=== PATIENT | male | born 1985 | race African-American/Black ===

== ENCOUNTER 2016-09-17 10:23 | Emergency (ER) | payer SELFPAY ==
[2016-09-17] MEDS ORDERED: HYDROcodone/Acetaminophen 10/325 mg Tablet ONE (10:40)
[2016-09-17] MEDS ORDERED: AMOXicillin 250 MG CAP ONE (10:41)
[2016-09-17] MEDS ORDERED: Ibuprofen 800 MG TAB ONE (10:41)
--- NOTE | 2016-09-17 10:59 | ERRECORD ---
[facility] EMERGENCY RECORD PAST MEDICAL HISTORY (10:28 SFER) MEDICAL HISTORY: Flu vaccine not up to date, Tetanus not up to date, Pneumococcal vaccine not up to date, Past medical history includes history of diabetes, Past medical history includes history of hypertension. MALE SURGICAL HISTORY: Patient has no surgical history. PSYCHIATRIC HISTORY: no history of suicidal ideations, No history of suicide attempts, No history of hallucinations, No history of homicidal ideations, No history of violence towards others, Psychiatric history includes, anxiety, depression. SOCIAL HISTORY: Patient denies alcohol use, Patient denies drug use, Patient has no smoking history. FAMILY HISTORY: Family istory is not significant. KNOWN ALLERGIES No Known Drug Allergies CURRENT MEDICATIONS (10:29 SFER) None VITAL SIGNS (10:28 SFER) VITAL SIGNS: BP: 147/107, Pulse: 103, Resp: 20 (Non-Labored), Temp: 97.9 (Oral), Pain: 10, O2 sat: 98 on Room Air, Time: 09/17/2016 10:28. MEDICATION ADMINISTRATION SUMMARY Drug Name: Orlando, Dose Ordered: 10 mg, Route: Oral, Status: Given, Time: 10:44 09/17/2016, Drug Name: Amoxil, Dose Ordered: 1000 mg, Route: Oral, Status: Given, Time: 10:44 09/17/2016, Drug Name: Motrin, Dose Ordered: 800 mg, Route: Oral, Status: Given, Time: 10:43 09/17/2016, Detailed record available in Medication Service section. PROBLEM LIST No recorded problems DIAGNOSIS (10:40 JPIP) FINAL: PRIMARY: Toothache, ADDITIONAL: chronic low back pain. PRESCRIPTION (10:39 JPIP) Amoxil: CAPSULE (HARD, SOFT, ETC.) : 500 mg : ORAL : Quantity: 1 Unit: mg Route: ORAL Schedule: 3 times a day (after meals) Dispense: 30 May substitute. Refills: No Refills . NOTES: No refills. diclofenac oral: TABLET, DELAYED RELEASE (ENTERIC COATED) : 75 &a-1R&a+25V*p+0X*c2745Q*c202B*c15G*c2P*p-0X&a-25V&a+1R Name: Hans Dao : 1985 M31 MedRec: [id number] AcctNum: [id number] Prepared: SatSep 17, 2016 10:56 by Interface Page 1 of 2 pMD [facility] EMERGENCY RECORD mg : ORAL : Quantity: 1 Unit: tab(s) Route: ORAL Schedule: 2 times a day (with meals) Dispense: 30 May substitute. Refills: No Refills . NOTES: as needed for pain No refills. Ultram: TABLET : 50 mg : ORAL : Quantity: 1-2 Unit: tab(s) Route: ORAL Schedule: every 8 hours PRN Dispense: 30 May substitute. Refills: No Refills . NOTES: for pain No refills. DISPOSITION PATIENT: Disposition Type: Discharge, Disposition: *Discharge Home, Condition: Good. (10:40 RAIN) Patient left the department. (10:52 [facility]) Arthur: AHOO=BRANDON Ni, December JPIP=DO Vega Joseph SFER=STAS Ponce, [place] &a-1R&a+25V*p+0X*v5608B*c202B*c15G*c2P*p-0X&a-25V&a+1R Name: Hans Dao : 1985 2 MedRec: [id number] AcctNum: [id number] Prepared: SatSep 17, 2016 10:56 by Interface Page 2 of 2 pMD MTDD
--- NOTE | 2016-09-17 11:03 | PICIS ---
[facility] EMERGENCY RECORD TRIAGE (SatSep 17, 2016 10:27 SFER) TRIAGE NOTES: patient presents with dental pain that started approximately 3 weeks ago. hurts daily. also complains of lower back pain. (SatSep 17, 2016 10:27 SFER) PATIENT: NAME: Hans Dao, AGE: 31, GENDER: male, : Sun 1985, TIME OF GREET: SatSep 17, 2016 10:23, PREFERRED LANGUAGE: Mozambican, ETHNICITY: Not or , ECODE BILLING MAP: [facility], SSN: [id number], KG WEIGHT: 117.93, , , PERSON ID: [id number], PAYMENT: [employer] Self Pay, PCP: None. (SatSep 17, 2016 10:27 SFER) Zip Code: [id number], PHONE: . (10:43) COMPLAINT: Dental Pain. (SatSep 17, 2016 10:27 SFER) ADMISSION: URGENCY: 5 Fast Track, ADMISSION SOURCE: Home, TRANSPORT: CAR, BED: ER -03. (SatSep 17, 2016 10:27 SFER) TRIAGE SCREENING: Patient denies suicidal ideation, Patient denies presence of domestic violence. (10:28 SFER) TREATMENTS IN PROGRESS: Treatments given Prehospital: none. (10:28 SFER) PROVIDERS: TRIAGE NURSE: Cheryl Ponce RN. (SatSep 17, 2016 10:27 SFER) VITAL SIGNS: BP 147/107, Pulse 103, Resp 20, (Non-Labored), Temp 97.9, (Oral), Pain 10, O2 Sat 98, on Room Air, Time 09/17/2016 10:28. (10:28 SFER) KNOWN ALLERGIES No Known Drug Allergies CURRENT MEDICATIONS (10:29 SFER) None VITAL SIGNS (10:28 SFER) VITAL SIGNS: BP: 147/107, Pulse: 103, Resp: 20 (Non-Labored), Temp: 97.9 (Oral), Pain: 10, O2 sat: 98 on Room Air, Time: 09/17/2016 10:28. NURSING ASSESSMENT: DENTAL (10:40 SFER) CONSTITUTIONAL: Patient arrives ambulatory, Gait steady, History obtained from patient, Patient appears comfortable, Patient cooperative, Patient alert, Oriented to person, place and time, Skin warm, Skin dry, Skin normal in color, Mucous membranes pink, Mucous membranes moist, Patient complains of dental pain, patient presents with dental pain to the left jaw. swelling and pain with palpation. PAIN: aching pain, cramping pain, to left lower back tooth (teeth), on a scale 0-10 patient rates pain as 10, Pain exacerbated by, palpation, Nothing has been tried to alleviate the pain. DENTAL: Dental assessment findings include mouth normal, Teeth normal, no associated malocclusion of jaw, no associated bleeding, &a-1R&a+25V*p+0X*j5410L*c202B*c15G*c2P*p-0X&a-25V&a+1R Name: Hans Dao : 1985 M31 MedRec: [id number] AcctNum: [id number] Prepared: SatSep 17, 2016 11:00 by Interface Page 1 of 4 pMD [facility] EMERGENCY RECORD Associated with, swelling to the left side of the face, no swelling to the eyes, no swelling to the neck, swelling to the left jaw. SAFETY: Side rails up, Cart/Stretcher in lowest position, Family at bedside, Call light within reach, Hospital ID band on. NURSING PROCEDURE: DISCHARGE NOTE (10:47 AHOO) DISCHARGE: Patient discharged to home, ambulating without assistance, transported via taxi, accompanied by //partner, Summary of Care printed/ provided, Transition record given to patient, Discharge instructions given to patient, Prescriptions given and instructions on side effects given, Above person(s) verbalized understanding of discharge instructions and follow-up care, Notes: PER MD REBOLLEDO TO [facility] PT WITH CURRENT VS. MEDICATION ADMINISTRATION SUMMARY Drug Name: Isola, Dose Ordered: 10 mg, Route: Oral, Status: Given, Time: 10:09/17/2016, Drug Name: Amoxil, Dose Ordered: 1000 mg, Route: Oral, Status: Given, Time: :09/17/2016, Drug Name: Motrin, Dose Ordered: 800 mg, Route: Oral, Status: Given, Time: 10:43 09/17/2016, Detailed record available in Medication Service section. MEDICATION SERVICE Amoxil: Order: Amoxil (amoxicillin trihydrate) - Dose: 1000 mg : Oral Schedule: Now Ordered by: Caleb Vega DO Entered by: Caleb Vega DO SatSep 17, 2016 10:38 , Acknowledged by: Latricia Ni LVN SatSep 17, 2016 10:39 Documented as given by: Latricia iN LVN SatSep 17, 2016 10:44 Patient, Medication, Dose, Route and Time verified prior to administration. Amount given: 1000MG, Correct patient, time, route, dose and medication confirmed prior to administration, Patient advised of actions and side-effects prior to administration, Allergies confirmed and medications reviewed prior to administration, Patient in position of comfort, Side rails up, Cart in lowest position, Family at bedside. Motrin: Order: Motrin (ibuprofen) - Dose: 800 mg : Oral Schedule: Now Ordered by: Caleb Vega DO Entered by: Caleb Vega DO SatSep 17, 2016 10:38 , Acknowledged by: Latricia Ni LVN SatSep 17, 2016 10:39 Documented as given by: Latricia Ni LVN SatSep 17, 2016 10:43 Patient, Medication, Dose, Route and Time verified prior to administration. &a-1R&a+25V*p+0X*o6623L*c202B*c15G*c2P*p-0X&a-25V&a+1R Name: Hans Dao : 1985 M31 MedRec: [id number] AcctNum: [id number] Prepared: SatSep 17, 2016 11:00 by Interface Page 2 of 4 pMD [facility] EMERGENCY RECORD Amount given: 800MG, Correct patient, time, route, dose and medication confirmed prior to administration, Patient advised of actions and side-effects prior to administration, Allergies confirmed and medications reviewed prior to administration, Patient in position of comfort, Side rails up, Cart in lowest position, Family at bedside. Isola: Order: Isola (hydrocodone bitartrate/acetaminophen) - Dose: 10 mg : Oral Schedule: Now Ordered by: Caleb Vega DO Entered by: Caleb Vega DO SatSep 17, 2016 10:38 , Acknowledged by: Latricia Ni LVN SatSep 17, 2016 10:39 Documented as given by: Latricia Ni LVN SatSep 17, 2016 10:44 Patient, Medication, Dose, Route and Time verified prior to administration. Amount given: 10MG, Correct patient, time, route, dose and medication confirmed prior to administration, Patient advised of actions and side-effects prior to administration, Allergies confirmed and medications reviewed prior to administration, Patient in position of comfort, Side rails up, Cart in lowest position, Family at bedside. PAST MEDICAL HISTORY (10:28 SFER) MEDICAL HISTORY: Flu vaccine not up to date, Tetanus not up to date, Pneumococcal vaccine not up to date, Past medical history includes history of diabetes, Past medical history includes history of hypertension. MALE SURGICAL HISTORY: Patient has no surgical history. PSYCHIATRIC HISTORY: no history of suicidal ideations, No history of suicide attempts, No history of hallucinations, No history of homicidal ideations, No history of violence towards others, Psychiatric history includes, anxiety, depression. SOCIAL HISTORY: Patient denies alcohol use, Patient denies drug use, Patient has no smoking history. FAMILY HISTORY: Family istory is not significant. EVENTS TRANSFER: Triage to Emergency Emergency Room -03. (SatSep 17, 2016 10:27 SFER) Removed from Emergency Emergency Room -03. (10:52 AHOO) PROBLEM LIST No recorded problems DIAGNOSIS (10:40 JPIP) FINAL: PRIMARY: Toothache, ADDITIONAL: chronic low back pain. DISPOSITION &a-1R&a+25V*p+0X*x8995O*c202B*c15G*c2P*p-0X&a-25V&a+1R Name: Hans Dao : 1985 M31 MedRec: [id number] AcctNum: [id number] Prepared: SatSep 17, 2016 11:00 by Interface Page 3 of 4 D [facility] EMERGENCY RECORD PATIENT: Disposition Type: Discharge, Disposition: *Discharge Home, Condition: Good. (10:40 JPIP) Patient left the department. (10:52 AHOO) INSTRUCTION (10:40 JPIP) DISCHARGE: TOOTH PAIN, CHRONIC PAIN. SPECIAL: Call your Dentist in the morning for a follow up appointment Call your Primary Care Physician in the morning for a follow up appointment and referral to pain management Return to the Emergency Department for increased symptoms problems or concerns Do not take motrin/ibuprofen/alleve/naprosyn while taking the diclofenac. PRESCRIPTION (10:39 JPIP) Amoxil: CAPSULE (HARD, SOFT, ETC.) : 500 mg : ORAL : Quantity: 1 Unit: mg Route: ORAL Schedule: 3 times a day (after meals) Dispense: 30 May substitute. Refills: No Refills . NOTES: No refills. diclofenac oral: TABLET, DELAYED RELEASE (ENTERIC COATED) : 75 mg : ORAL : Quantity: 1 Unit: tab(s) Route: ORAL Schedule: 2 times a day (with meals) Dispense: 30 May substitute. Refills: No Refills . NOTES: as needed for pain No refills. Ultram: TABLET : 50 mg : ORAL : Quantity: 1-2 Unit: tab(s) Route: ORAL Schedule: every 8 hours PRN Dispense: 30 May substitute. Refills: No Refills . NOTES: for pain No refills. IMAGING (10:50 [facility]) *DISCHARGE INSTRUCTIONS RECEIPT: Image captured from scanner. *SUPPLY CHARGE SHEET: Image captured from scanner. Arthur: OO=BRANDON NiDecember JPIP=DO Vega Joseph SFER=STAS Ponce, [place] &a-1R&a+25V*p+0X*q4011R*c202B*c15G*c2P*p-0X&a-25V&a+1R Name: Hans Dao : 1985 M31 MedRec: [id number] AcctNum: [id number] Prepared: SatSep 17, 2016 11:00 by Interface Page 4 of 4 pMD MTDD
== END 2016-09-17 10:47 | disposition home or self-care (01) ==
LOC: BURERS 10:23
DX: K08.89 Other specified disorders of teeth and supporting structures (principal); M54.5 Low back pain; G89.29 Other chronic pain; I10 Essential (primary) hypertension; E11.9 Type 2 diabetes mellitus without complications; F32.9 Major depressive disorder, single episode, unspecified; F41.9 Anxiety disorder, unspecified
CPT/HCPCS: 99283

== ENCOUNTER 2016-09-21 11:59 | Emergency (ER) | payer SELFPAY ==
[2016-09-21] MEDS ORDERED: Ondansetron ODT 4 MG TAB ONE (12:19)
--- NOTE | 2016-09-21 13:32 | ERRECORD ---
[facility] EMERGENCY RECORD HPI FLU-LIKE SYNDROME (12:11 WMEI) CHIEF COMPLAINT: Patient presents for evaluation of body aches, Patient presents for evaluation of fatigue, Denies fever. HISTORIAN: History provided by patient. LOCATION: Symptoms are generalized. TIME COURSE: Sudden onset of symptoms, 10, hours prior to arrival, ACUTE ONSET OF FATGUE CHILLS MYALGIAS LAST NIGHT. ASSOCIATED WITH: No associated diarrhea, No associated flank pain, No associated headache, No associated vomiting. EXACERBATED BY: Patient's condition exacerbated by nothing. RELIEVED BY: Patient's condition relieved by nothing. ROS (12:13 WMEI) CONSTITUTIONAL: Historian reports fatigue, reports lethargy. EYES: Historian denies eye pain, denies eye discharge. ENT: Historian denies otalgia, denies rhinorrhea, denies sore throat. CARDIOVASCULAR: Historian denies chest pain, no radiation. RESPIRATORY: Historian reports cough, denies shortness of breath. GI: Historian denies abdominal pain, reports nausea, denies vomiting. GENITOURINARY MALE: Historian denies dysuria, denies urinary urgency. MUSCULOSKELETAL: Historian denies joint swelling, reports myalgias. SKIN: Historian denies skin changes, denies skin lesions. NEUROLOGIC: Historian denies confusion, denies headache, denies mental status changes. ALLERGIC/IMMUNOLOGIC: Historian denies eczema, denies food allergies. PSYCHIATRIC: Historian denies alcohol abuse, denies anxiety. PAST MEDICAL HISTORY (12:36 HASA) MEDICAL HISTORY: Flu vaccine not up to date, Tetanus not up to date, Pneumococcal vaccine not up to date, Past medical history includes history of diabetes, Past medical history includes history of hypertension. Patient denies past medical history. Verified on 09/21/16. MALE SURGICAL HISTORY: Patient has no surgical history. Verified on 09/21/16. PSYCHIATRIC HISTORY: no history of suicidal ideations, No history of suicide attempts, No history of hallucinations, No history of homicidal ideations, No history of violence towards others, Psychiatric history includes, anxiety, depression. Patient denies psychiatric history. Verified on 09/21/16. SOCIAL HISTORY: Patient denies alcohol use, Patient denies drug use, Patient has no smoking history. Verified on 09/21/16. &a-1R&a+25V*p+0X*n3894T*c202B*c15G*c2P*p-0X&a-25V&a+1R Name: Hans Dao : 1985 M31 MedRec: [id number] AcctNum: [id number] Prepared: SatSep 21, 2016 22:42 by Interface Page 1 of 3 pMD [facility] EMERGENCY RECORD FAMILY HISTORY: Family istory is not significant. KNOWN ALLERGIES No Known Drug Allergies CURRENT MEDICATIONS (12:37 HASA) Amoxil: CAPSULE : Strength - 500 mg : ORAL Patient Dose: 1 mg Oral 3 times a day (after meals). diclofenac sodium: TABLET, DELAYED RELEASE (ENTERIC COATED) : Strength - 75 mg : ORAL Patient Dose: 1 tab(s) Oral 2 times a day (with meals).as needed for pain. Ultram: TABLET : Strength - 50 mg : ORAL Patient Dose: 1-2 tab(s) Oral every 8 hours PRN.for pain. VITAL SIGNS VITAL SIGNS: BP: 147/94, Pulse: 88, Resp: 16 (Non-Labored), Temp: 97.9 (Oral), Pain: 8, O2 sat: 99 on Room Air, Time: 09/21/2016 12:06. (12:06 HASA) BP: 123/81, Pulse: 90, Resp: 16 (Non-Labored), Temp: 97.3 (Oral), Pain: 8, O2 sat: 98 on Room Air, Time: 09/21/2016 13:25. (13:25 HASA) Pulse: 84, Resp: 18, O2 sat: 99 on Room Air, Time: 09/21/2016 12:44. (12:44 HASA) PHYSICAL EXAM (12:14 WMEI) CONSTITUTIONAL: Vital signs reviewed, Patient afebrile, Patient appears non toxic, Patient alert and oriented to person, place and time. HEAD: Head exam included findings of head atraumatic, normocephalic. EYES: Extraocular muscles intact, Conjunctiva normal, Sclera normal. ENT: Ear exam normal, Nose exam normal, Pharynx exam normal. NECK: Neck exam included findings of normal range of motion, Trachea midline. RESPIRATORY CHEST: Breath sounds clear, Chest exam included findings of chest movement symmetrical. CARDIOVASCULAR: Cardiovascular exam included findings of heart rate regular rate and rhythm, Heart sounds normal. ABDOMEN MALE: Abdominal exam included findings of abdomen nontender, Bowel sounds normal. UPPER EXTREMITY: Upper extremity exam included findings of inspection normal, Range of motion normal, Motor strength normal. LOWER EXTREMITY: Lower extremity exam included findings of inspection normal, Range of motion normal, Motor strength normal, Yasir's negative. NEURO: Placido coma scale 15, Neuro exam findings include patient oriented to person, place and time, Speech normal, Gait normal. &a-1R&a+25V*p+0X*t4752L*c202B*c15G*c2P*p-0X&a-25V&a+1R Name: Hans Dao : 1985 M31 MedRec: [id number] AcctNum: [id number] Prepared: SatSep 21, 2016 22:42 by Interface Page 2 of 3 pMD [facility] EMERGENCY RECORD SKIN: Skin exam included findings of skin warm, dry, and normal in color. LYMPHATIC: Lymphatic exam normal. PSYCHIATRIC: Psychiatric exam included findings of patient oriented to person place and time, Normal affect, Judgment normal, Insight normal. MEDICATION ADMINISTRATION SUMMARY Drug Name: Zofran ODT, Dose Ordered: 4 mg, Route: Sublingual, Status: Given, Time: 12:19 09/21/2016, Detailed record available in Medication Service section. PROBLEM LIST No recorded problems DIAGNOSIS (13:17 WMEI) FINAL: PRIMARY: NAUSEA, ADDITIONAL: CHILLS. PRESCRIPTION (13:16 WMEI) Zofran oral: TABLET : 4 mg : ORAL : Quantity: 4 Unit: mg Route: ORAL Schedule: every 4 hours prn Dispense: 10 Unit: tab(s) May substitute. Refills: No Refills . NOTES: No refills. DISPOSITION PATIENT: Disposition Type: Discharge, Disposition: *Discharge Home. (13:17 WMEI) Patient left the department. (13:25 HASA) Arthur: HASA=STAS Lora, Catherine WMEI=DO [place] William &a-1R&a+25V*p+0X*k3873Y*c202B*c15G*c2P*p-0X&a-25V&a+1R Name: Hans Dao : 1985 M31 MedRec: [id number] AcctNum: [id number] Prepared: SatSep 21, 2016 22:42 by Interface Page 3 of 3 pMD MTDD
--- NOTE | 2016-09-21 13:38 | PICIS ---
[facility] EMERGENCY RECORD TRIAGE (12:09 HASA) TRIAGE NOTES: N/V. Weakness. Chills. Night sweats. Symptoms started last night. (12:09 HASA) PATIENT: NAME: Hans Dao, AGE: 31, GENDER: male, : Sun 1985, TIME OF GREET: SatSep 21, 2016 12:00, PREFERRED LANGUAGE: Belarusian, ETHNICITY: Not or , ECODE BILLING MAP: [place], SSN: [id number], Zip Code: [address], KG WEIGHT: 136.08 (est.), PHONE: , , , PERSON ID: [id number], PAYMENT: [facility] Self Pay, PCP: None. (12:09 HASA) COMPLAINT: Nausea and Vomiting. (12:09 HASA) ADMISSION: URGENCY: 4 Non Urgent, ADMISSION SOURCE: Home, TRANSPORT: Walk-in, BED: ER -05. (12:09 HASA) SIRS SCORING: Heart Rate 55-109 (0), Temp range 96.8-101.1 (0), respiratory rate 12-24 (0), Latest WBC 3-14.9 (0), Mental Status altered: no (0), Infection or Suspected Infection: No. (12:36 HASA) TRIAGE SCREENING: Patient denies suicidal ideation, Patient denies presence of domestic violence. (12:36 HASA) TREATMENTS IN PROGRESS: Treatments given Prehospital: Ibuprofen. (12:36 HASA) PROVIDERS: TRIAGE NURSE: Catherine Lora RN. (12:09 HASA) VITAL SIGNS: BP 147/94, Pulse 88, Resp 16, (Non-Labored), Temp 97.9, (Oral), Pain 8, O2 Sat 99, on Room Air, Time 09/21/2016 12:06. (12:06 HASA) PREVIOUS VISIT ALLERGIES: No Known Drug Allergies. (12:09 HASA) No Known Drug Allergies. (12:36 HASA) KNOWN ALLERGIES No Known Drug Allergies CURRENT MEDICATIONS (12:37 HASA) Amoxil: CAPSULE : Strength - 500 mg : ORAL Patient Dose: 1 mg Oral 3 times a day (after meals). diclofenac sodium: TABLET, DELAYED RELEASE (ENTERIC COATED) : Strength - 75 mg : ORAL Patient Dose: 1 tab(s) Oral 2 times a day (with meals).as needed for pain. Ultram: TABLET : Strength - 50 mg : ORAL Patient Dose: 1-2 tab(s) Oral every 8 hours PRN.for pain. VITAL SIGNS VITAL SIGNS: BP: 147/94, Pulse: 88, Resp: 16 (Non-Labored), Temp: 97.9 (Oral), Pain: 8, O2 sat: 99 on Room Air, Time: 09/21/2016 12:06. (12:06 HASA) BP: 123/81, Pulse: 90, Resp: 16 (Non-Labored), Temp: 97.3 (Oral), Pain: 8, O2 sat: 98 on Room Air, Time: 09/21/2016 13:25. (13:25 HASA) Pulse: 84, Resp: 18, O2 sat: 99 on Room Air, Time: 09/21/2016 12:44. (12:44 HASA) &a-1R&a+25V*p+0X*[id number]*c202B*c15G*c2P*p-0X&a-25V&a+1R Name: Hans Dao : 1985 M31 MedRec: [id number] AcctNum: [id number] Prepared: SatSep 21, 2016 22:48 by Interface Page [address] [facility] EMERGENCY RECORD NURSING ASSESSMENT: ABDOMEN (12:18 HASA) CONSTITUTIONAL: Patient arrives ambulatory, Gait steady, History obtained from patient, Patient appears comfortable, Patient cooperative, Patient alert, Oriented to person, place and time, Skin warm, Skin dry, Skin normal in color, Mucous membranes pink, Mucous membranes moist, Patient is well-groomed, Patient complains of NAUSEA/VOMITING/CHILLS, Patient arrives to the ED complaining of night sweats, chills, and weakness since last night. Reports N/V. Reports pain as 8 out of 10. PAIN: diffusely, on a scale 0-10 patient rates pain as 8. ABDOMEN: Abdomen assessment findings include abdomen symmetrical, Abdomen soft, tender, diffusely, Associated with nausea, Associated with vomiting, history of vomiting. SAFETY: Side rails up, Cart/Stretcher in lowest position, Family at bedside, Call light within reach, Hospital ID band on. NURSING PROCEDURE: DISCHARGE NOTE (13:25 HASA) DISCHARGE: Patient discharged to home, ambulating without assistance, family driving, accompanied by //partner, Summary of Care printed/ provided, Patient requested and was provided an electronic copy of Discharge Instructions, Transition record given to patient, Discharge instructions given to patient, Prescriptions given and instructions on side effects given, Medication reconciliation form given, Above person(s) verbalized understanding of discharge instructions and follow-up care, Notes: Patient instructed on discharge instructions. Patient instructed on proper medication usage. Patient instructed to follow-up with PCP. NURSING PROCEDURE: ENT (12:20 HASA) PATIENT IDENTIFIER: Patient actively involved in identification process, Patient's identity verified by patient stating name, Patient's identity verified by patient stating date. ENT: Nasal swab collected, labeled in the presence of the patient and sent to lab for testing of, influenza A, influenza B, FLU, collected by Dr. Patterson. SAFETY: Side rails up, Cart/Stretcher in lowest position, Family at bedside, Call light within reach, Hospital ID band on. NURSING PROCEDURE: NURSE NOTES (12:51 HASA) NURSES NOTES: Notes: Patient resting in bed. Awaiting flu test results. Family at bedside. In view of nurses' station. Monitors on. NAD. ORDER DETAILS Order Name: Influenza A&B Ag Screen, Status: Active, Time: 12:11 09/21/2016, User: WMEI, &a-1R&a+25V*p+0X*u9483X*c202B*c15G*c2P*p-0X&a-25V&a+1R Name: Hans Dao : 1985 M31 MedRec: [id number] AcctNum: [id number] Prepared: SatSep 21, 2016 22:48 by Interface Page [address] [facility] EMERGENCY RECORD - Ordered for: DO Patterson William, - Entered by: DO Patterson William - SatSep 21, 2016 12:11, - Quantity: 1. MEDICATION ADMINISTRATION SUMMARY Drug Name: Zofran ODT, Dose Ordered: 4 mg, Route: Sublingual, Status: Given, Time: 12:19 09/21/2016, Detailed record available in Medication Service section. MEDICATION SERVICE (12:19 WMEI) Zofran ODT: Order: Zofran ODT (ondansetron) - Dose: 4 mg : Sublingual Schedule: Now Ordered by: Óscar Patterson DO Entered by: Óscar Patterson DO SatSep 21, 2016 12:11 , Acknowledged by: Catherine Lora RN SatSep 21, 2016 12:16 Documented as given by: Catherine Lora RN SatSep 21, 2016 12:19 Patient, Medication, Dose, Route and Time verified prior to administration. Amount given: 4 MG, Site: Medication administered S.L., Mouth check performed after administration of medication, Correct patient, time, route, dose and medication confirmed prior to administration, Patient advised of actions and side-effects prior to administration, Allergies confirmed and medications reviewed prior to administration, Patient in position of comfort, Side rails up, Cart in lowest position, Family at bedside. HPI FLU-LIKE SYNDROME (12:11 WMEI) CHIEF COMPLAINT: Patient presents for evaluation of body aches, Patient presents for evaluation of fatigue, Denies fever. HISTORIAN: History provided by patient. LOCATION: Symptoms are generalized. TIME COURSE: Sudden onset of symptoms, 10, hours prior to arrival, ACUTE ONSET OF FATGUE CHILLS MYALGIAS LAST NIGHT. ASSOCIATED WITH: No associated diarrhea, No associated flank pain, No associated headache, No associated vomiting. EXACERBATED BY: Patient's condition exacerbated by nothing. RELIEVED BY: Patient's condition relieved by nothing. ROS (12:13 WMEI) CONSTITUTIONAL: Historian reports fatigue, reports lethargy. EYES: Historian denies eye pain, denies eye discharge. ENT: Historian denies otalgia, denies rhinorrhea, denies sore throat. CARDIOVASCULAR: Historian denies chest pain, no radiation. RESPIRATORY: Historian reports cough, denies shortness of breath. &a-1R&a+25V*p+0X*q4171R*c202B*c15G*c2P*p-0X&a-25V&a+1R Name: Will Daoheydi Hyman : 1985 M31 MedRec: [id number] AcctNum: [id number] Prepared: SatSep 21, 2016 22:48 by Interface Page [address] [facility] EMERGENCY RECORD GI: Historian denies abdominal pain, reports nausea, denies vomiting. GENITOURINARY MALE: Historian denies dysuria, denies urinary urgency. MUSCULOSKELETAL: Historian denies joint swelling, reports myalgias. SKIN: Historian denies skin changes, denies skin lesions. NEUROLOGIC: Historian denies confusion, denies headache, denies mental status changes. ALLERGIC/IMMUNOLOGIC: Historian denies eczema, denies food allergies. PSYCHIATRIC: Historian denies alcohol abuse, denies anxiety. PAST MEDICAL HISTORY (12:36 HASA) MEDICAL HISTORY: Flu vaccine not up to date, Tetanus not up to date, Pneumococcal vaccine not up to date, Past medical history includes history of diabetes, Past medical history includes history of hypertension. Patient denies past medical history. Verified on 09/21/16. MALE SURGICAL HISTORY: Patient has no surgical history. Verified on 09/21/16. PSYCHIATRIC HISTORY: no history of suicidal ideations, No history of suicide attempts, No history of hallucinations, No history of homicidal ideations, No history of violence towards others, Psychiatric history includes, anxiety, depression. Patient denies psychiatric history. Verified on 09/21/16. SOCIAL HISTORY: Patient denies alcohol use, Patient denies drug use, Patient has no smoking history. Verified on 09/21/16. FAMILY HISTORY: Family istory is not significant. PHYSICAL EXAM (12:14 WMEI) CONSTITUTIONAL: Vital signs reviewed, Patient afebrile, Patient appears non toxic, Patient alert and oriented to person, place and time. HEAD: Head exam included findings of head atraumatic, normocephalic. EYES: Extraocular muscles intact, Conjunctiva normal, Sclera normal. ENT: Ear exam normal, Nose exam normal, Pharynx exam normal. NECK: Neck exam included findings of normal range of motion, Trachea midline. RESPIRATORY CHEST: Breath sounds clear, Chest exam included findings of chest movement symmetrical. CARDIOVASCULAR: Cardiovascular exam included findings of heart rate regular rate and rhythm, Heart sounds normal. ABDOMEN MALE: Abdominal exam included findings of abdomen nontender, Bowel sounds normal. UPPER EXTREMITY: Upper extremity exam included findings of inspection normal, Range of motion normal, Motor strength normal. LOWER EXTREMITY: Lower extremity exam included findings of &a-1R&a+25V*p+0X*d2294A*c202B*c15G*c2P*p-0X&a-25V&a+1R Name: Hans Dao : 1985 M31 MedRec: [id number] AcctNum: [id number] Prepared: SatSep 21, 2016 22:48 by Interface Page [address] [facility] EMERGENCY RECORD inspection normal, Range of motion normal, Motor strength normal, Yasir's negative. NEURO: Melville coma scale 15, Neuro exam findings include patient oriented to person, place and time, Speech normal, Gait normal. SKIN: Skin exam included findings of skin warm, dry, and normal in color. LYMPHATIC: Lymphatic exam normal. PSYCHIATRIC: Psychiatric exam included findings of patient oriented to person place and time, Normal affect, Judgment normal, Insight normal. EVENTS TRANSFER: Triage to Emergency Emergency Room -05. (SatSep 21, 2016 12:09 HASA) Removed from Emergency Emergency Room -05. (13:25 HASA) PROBLEM LIST No recorded problems DIAGNOSIS (13:17 WMEI) FINAL: PRIMARY: NAUSEA, ADDITIONAL: CHILLS. DISPOSITION PATIENT: Disposition Type: Discharge, Disposition: *Discharge Home. (13:17 WMEI) Patient left the department. (13:25 HASA) INSTRUCTION (13:18 WMEI) DISCHARGE: NAUSEA VOMITING 5YADULT. SPECIAL: Follow-up with your primary physician as needed. PRESCRIPTION (13:16 WMEI) Zofran oral: TABLET : 4 mg : ORAL : Quantity: 4 Unit: mg Route: ORAL Schedule: every 4 hours prn Dispense: 10 Unit: tab(s) May substitute. Refills: No Refills . NOTES: No refills. IMAGING *DISCHARGE INSTRUCTIONS RECEIPT: Image captured from scanner. (13:32 HASA) *SUPPLY CHARGE SHEET: Image captured from scanner. (13:33 HASA) ADMIN (22:38 WMEI) DIGITAL SIGNATURE: DO Patterson William. Arthur: HASA=STAS Lora, Catherine WMEI=DO Patterson William &a-1R&a+25V*p+0X*k4512E*c202B*c15G*c2P*p-0X&a-25V&a+1R Name: Hans Dao : 1985 M31 MedRec: [id number] AcctNum: [id number] Prepared: SatSep 21, 2016 22:48 by Interface Page 5 of 5 pMD MTDD
== END 2016-09-21 13:25 | disposition home or self-care (01) ==
LOC: BURERS 11:59
DX: R11.0 Nausea (principal); R68.83 Chills (without fever); E11.9 Type 2 diabetes mellitus without complications; I10 Essential (primary) hypertension
CPT/HCPCS: 99283; Q0162

== ENCOUNTER 2016-09-23 23:08 | Emergency (ER) | payer SELFPAY ==
[2016-09-23] MEDS ORDERED: Insulin Regular 300 UNITS/3 ML VIAL ONE (23:32)
[2016-09-23 23:51] LABS: Bilirubin Negative (Negative); Blood, Urine Trace (Negative); Glucose, Urine (Dipstick) 500 mg/dL (Negative); Ketone, Urine Negative (Negative); Nitrite Negative (Negative); Protein, Urine (Dipstick) Negative (Neg-Trace); Urobilinogen 0.2 mg/dL (0.2-1.0)
[2016-09-23] MEDS ORDERED: Ketorolac Tromethamine 30 MG/ML VIAL ONE (23:53)
[2016-09-23] MEDS ORDERED: Ondansetron HCl/PF 4 MG/2 ML Vial ONE (23:53)
[2016-09-23 23:57] LABS: Bacteria/HPF Rare-Few HPF (None Seen); RBC/HPF 0-3 HPF (0-3); Squamous Epithelial 0-3 HPF (0-3); WBC/HPF 0-3 HPF (0-3); Yeast-All Forms Rare HPF (None Seen)
[2016-09-24] LABS: Hematocrit 44.9 % (42.0-52.0); Red Blood Cell (RBC) Count 5.34 mill/uL (4.70-6.10)
[2016-09-24 00:05] LABS: ALT (SGPT) 26 U/L (0-55); AST (SGOT) 17 U/L (5-34); Alkaline Phosphatase 71 U/L (40-150); Anion Gap 15 mmol/L (10-20); BUN (Urea Nitrogen) 8 mg/dL (8.9-20.6); Bilirubin, Total 0.2 mg/dL (0.2-1.2); Calc. Creatinine Clearance 0 mL/min (70-130); Calcium 9.1 mg/dL (7.8-10.44); Carbon Dioxide 24 mmol/L (22-29); Chloride 98 mmol/L (98-107); Estimated GFR-MDRD 87; Globulin 3.2 g/dL (2.4-3.5)
[2016-09-24 00:14] LABS: #Basophils 0.1 thou/uL (0.0-0.2); #Eosinphils 0.1 thou/uL (0.0-0.7); #Lymphocytes 3.1 thou/uL (1.20-3.40); #Monocytes 0.3 thou/uL (0.11-0.59); #Neutrophils 3.4 thou/uL (1.40-6.50); %Basophils 0.9 % (0.0-1.0); %Eosinophils 0.9 % (0.0-10.0); %Monocytes 4.6 % (0.0-10.0); Hypochromia SLIGHT = 6-15 cells (100X) (0-5/hpf); Microcytosis SLIGHT = 6-15 cells (100X) (0-5/hpf)
--- NOTE | 2016-09-24 03:08 | ERRECORD ---
[facility] EMERGENCY RECORD HPI DIABETES (23:43 WMEI) CHIEF COMPLAINT: Patient presents for evaluation of hyperglycemia, Pre-hospital or triage blood sugar greater than 400, Denies mental status change. HISTORIAN: History provided by patient, Additional history obtained from EMS, pt recently diagnosed dm has not started trt yet. LOCATION: No localizing symptoms. TIME COURSE: Gradual onset of symptoms, 1, days priror to arrival, Symptoms are improving. ASSOCIATED WITH: No associated history of chest pain, Associated with polyuria, Associated with vomiting. EXACERBATED BY: Patient's condition exacerbated by nothing. RELIEVED BY: Patient's condition relieved by nothing. ROS (23:45 WMEI) CONSTITUTIONAL: Historian reports chills, denies fever, reports weight loss. EYES: Historian denies eye pain, denies eye redness. ENT: Historian denies rhinorrhea, denies sore throat. CARDIOVASCULAR: Historian denies chest pain, no radiation. GI: Historian denies abdominal pain, reports nausea, reports vomiting. MUSCULOSKELETAL: Historian denies joint redness, denies joint stiffness. SKIN: Historian denies skin changes, denies skin lesions. NEUROLOGIC: Historian denies confusion, denies dizziness, denies focal weakness, denies lethargy. ENDOCRINE: Historian reports polyuria. PSYCHIATRIC: Historian denies anxiety, denies depression, denies drug abuse. PAST MEDICAL HISTORY (23:34 CHOB) MEDICAL HISTORY: Flu vaccine not up to date, Tetanus not up to date, Pneumococcal vaccine not up to date, Past medical history includes history of diabetes, Past medical history includes history of hypertension. Patient denies past medical history. Verified on 09/23/16. MALE SURGICAL HISTORY: Patient has no surgical history. Verified on 09/23/16. PSYCHIATRIC HISTORY: no history of suicidal ideations, No history of suicide attempts, No history of hallucinations, No history of homicidal ideations, No history of violence towards others, Psychiatric history includes, anxiety, depression. Patient denies psychiatric history. Verified on 09/23/16. SOCIAL HISTORY: Patient denies alcohol use, Patient denies drug use, Patient has no smoking history. Verified on 09/23/16. FAMILY HISTORY: Family History is not significant. KNOWN ALLERGIES No Known Drug Allergies &a-1R&a+25V*p+0X*f9784B*c202B*c15G*c2P*p-0X&a-25V&a+1R Name: Hans Dao : 1985 M31 MedRec: [id number] AcctNum: [id number] Prepared: SatSep 24, 2016 02:26 by Interface Page 1 of 3 pMD [facility] EMERGENCY RECORD CURRENT MEDICATIONS (23:35 CHOB) Amoxil: CAPSULE : Strength - 500 mg : ORAL Patient Dose: 1 mg Oral 3 times a day (after meals). diclofenac sodium: TABLET, DELAYED RELEASE (ENTERIC COATED) : Strength - 75 mg : ORAL Patient Dose: 1 tab(s) Oral 2 times a day (with meals).as needed for pain. Ultram: TABLET : Strength - 50 mg : ORAL Patient Dose: 1-2 tab(s) Oral every 8 hours PRN.for pain. Zofran (as hydrochloride): TABLET : Strength - 4 mg : ORAL Patient Dose: 4 mg Oral every 4 hours prn. VITAL SIGNS VITAL SIGNS: BP: 130/81, Pulse: 88, Resp: 18, Temp: 97.6 (Oral), Pain: 0, O2 sat: 96 on Room Air, Time: 09/23/2016 23:23. (23:23 CHOB) BP: 129/91, Pulse: 90 (Regular), Resp: 18 (Non-Labored), Pain: 0, O2 sat: 94 on Room Air, Time: 09/23/2016 23:30. (23:30 CHOB) BP: 136/82, Pulse: 84, Resp: 20, Pain: 5, O2 sat: 95 on Room Air, Time: 09/24/2016 00:01. (SatSep 24, 2016 00:01 LSMI) BP: 118/87, Pulse: 84, Resp: 20, Temp: 97.8 (Oral), Pain: 2, O2 sat: 96 on Room Air, Time: 09/24/2016 01:00. (SatSep 24, 2016 01:00 LSMI) BP: 117/87, Pulse: 80, Resp: 16, Temp: 98.0 (Oral), Pain: 2, O2 sat: 97 on Room Air, Time: 09/24/2016 02:15. (SatSep 24, 2016 02:15 LSMI) PHYSICAL EXAM (23:47 WMEI) CONSTITUTIONAL: Vital Signs Reviewed. HEAD: Head exam included findings of head atraumatic, normocephalic. EYES: Conjunctiva normal, Sclera normal. ENT: Ear exam normal, Nose exam normal, Pharynx exam normal. NECK: Neck exam included findings of normal range of motion, Trachea midline. RESPIRATORY CHEST: Breath sounds clear, Chest exam included findings of chest movement symmetrical. CARDIOVASCULAR: Cardiovascular exam included findings of heart rate regular rate and rhythm, Heart sounds normal. ABDOMEN MALE: Abdominal exam included findings of abdomen nontender, Bowel sounds normal, no distension. UPPER EXTREMITY: Upper extremity exam included findings of inspection normal, Range of motion normal, Motor strength normal. LOWER EXTREMITY: Lower extremity exam included findings of inspection normal, Range of motion normal, Motor strength normal. NEURO: [place]ac[place] coma scale 15, Neuro exam findings include patient oriented to person, place and time, Speech normal, Gait normal. SKIN: Skin exam included findings of skin warm, dry, and normal in color. &a-1R&a+25V*p+0X*k5199S*c202B*c15G*c2P*p-0X&a-25V&a+1R Name: Hans Dao : 1985 M31 MedRec: [id number] AcctNum: [id number] Prepared: SatSep 24, 2016 02:26 by Interface Page 2 of 3 pMD [facility] EMERGENCY RECORD LYMPHATIC: Lymphatic exam normal. PSYCHIATRIC: Psychiatric exam included findings of patient oriented to person place and time, Normal affect, Judgment normal, Insight normal. MEDICATION ADMINISTRATION SUMMARY Drug Name: metFORMIN, Dose Ordered: 500 mg, Route: Oral, Status: Given, Time: 02:14 09/24/2016, Drug Name: *sodium chloride 0.9 % intravenous, Dose Ordered: 1 L, Route: IV Fluid Infusion, Status: Given, Time: 00:29 09/24/2016, Drug Name: Toradol injection, Dose Ordered: 30 mg, Route: IV Push, Status: Given, Time: 00:01 09/24/2016, Drug Name: Zofran intravenous, Dose Ordered: 4 mg, Route: IV Push, Status: Given, Time: 00:01 09/24/2016, Drug Name: HumuLIN R, Dose Ordered: 5 units, Route: Subcutaneous, Status: Given, Time: 23:39 09/23/2016, *Additional information available in notes, Detailed record available in Medication Service section. PROBLEM LIST No recorded problems DIAGNOSIS (SatSep 24, 2016 01:41 WMEI) FINAL: PRIMARY: Hyperglycemic coma - NIDDM, Type 2, ADDITIONAL: DEHYDRATION. PRESCRIPTION (SatSep 24, 2016 01:43 WMEI) metFORMIN: TABLET : 500 mg : ORAL : Quantity: 500 Unit: mg Route: ORAL Schedule: once a day (in the morning) Dispense: 30 Unit: tab(s) May substitute. Refills: No Refills . NOTES: No refills. DISPOSITION PATIENT: Disposition Type: Discharge, Disposition: *Discharge Home. (SatSep 24, 2016 01:41 WMEI) Patient left the department. (SatSep 24, 2016 02:24 ZAYNAB) Arthur: ZAYNAB=STAS Barcenas Christina LSMI=BRANDON Davies Leah WMEI=DO Patterson William &a-1R&a+25V*p+0X*h2794M*c202B*c15G*c2P*p-0X&a-25V&a+1R Name: Hans Dao : 1985 M31 MedRec: [id number] AcctNum: [id number] Prepared: SatSep 24, 2016 02:26 by Interface Page 3 of 3 pMD MTDD
--- NOTE | 2016-09-24 03:11 | PICIS ---
[facility] EMERGENCY RECORD TRIAGE (Barron Sep 23, 2016 23:26 CHOB) TRIAGE NOTES: BS 482. PT WANTS ER TO GIVE INSULIN TO BRING BS DOWN AND STATES HE WILL REFUSE A TRANSFER TO [place], HE WANTS THE ER TO FIX HIM AND SEND HIM HOME, PER THE PT. (Barron Sep 23, 2016 23:26 CHOB) PATIENT: NAME: Hans Dao, AGE: 31, GENDER: male, : Barron 1985, TIME OF GREET: SatSep 23, 2016 23:09, PREFERRED LANGUAGE: Thai, ETHNICITY: Not or , ECODE BILLING MAP: [facility], SSN: [id number], Zip Code: [address], KG WEIGHT: 131.54 (est.), PHONE: , , , PERSON ID: [id number], PAYMENT: SJX Self Pay, PCP: NONE. (Barron Sep 23, 2016 23:26 CHOB) COMPLAINT: HIGH BLOOD SUGAR. (Barron Sep 23, 2016 23:26 CHOB) ADMISSION: URGENCY: 3 Urgent, ADMISSION SOURCE: Home, TRANSPORT: AMBULANCE - [facility], BED: ER -02. (Barron Sep 23, 2016 23:26 CHOB) ASSESSMENT: Assessment: PT A/OX4, SPEAKS FULL SENTENCES, SKIN W/D. ARRIVED TO [facility] VIA EMS PER CART BUT WAS ABLE TO STAND AND TRANSFER TO ER CART. RESPIRATIONS EVEN NON LABORED. NO ACUTE DISTRESS NOTED., Symptoms began 09/21/2016 23:32. (23:34 CHOB) PAIN: No complaint of pain. (23:34 CHOB) SIRS SCORING: Heart Rate 55-109 (0), Temp range 96.8-101.1 (0), respiratory rate 12-24 (0), Mental Status altered: no (0), Infection or Suspected Infection: No. (23:34 CHOB) TRIAGE SCREENING: Patient denies suicidal ideation, Patient denies presence of domestic violence. (23:34 CHOB) TREATMENTS IN PROGRESS: Saline Lock, Site: RAC, Gauge: 18. (23:34 CHOB) PROVIDERS: TRIAGE NURSE: Melissa Barcenas RN. (Barron Sep 23, 2016 23:26 CHOB) VITAL SIGNS: BP 130/81, Pulse 88, Resp 18, Temp 97.6, (Oral), Pain 0, O2 Sat 96, on Room Air, Time 09/23/2016 23:23. (23:23 CHOB) BP 129/91, Pulse 90, (Regular), Resp 18, (Non-Labored), Pain 0, O2 Sat 94, on Room Air, Time 09/23/2016 23:30. (23:30 CHOB) PREVIOUS VISIT ALLERGIES: No Known Drug Allergies. (Barron Sep 23, 2016 23:26 CHOB) No Known Drug Allergies. (23:34 CHOB) KNOWN ALLERGIES No Known Drug Allergies CURRENT MEDICATIONS (23:35 CHOB) Amoxil: CAPSULE : Strength - 500 mg : ORAL Patient Dose: 1 mg Oral 3 times a day (after meals). diclofenac sodium: TABLET, DELAYED RELEASE (ENTERIC COATED) : Strength - 75 mg : ORAL Patient Dose: 1 tab(s) Oral 2 times a day (with meals).as needed for pain. Ultram: TABLET : Strength - 50 mg : ORAL &a-1R&a+25V*p+0X*j7668K*c202B*c15G*c2P*p-0X&a-25V&a+1R Name: Hans Dao : 1985 2 MedRec: [id number] AcctNum: [id number] Prepared: SatSep 24, 2016 02:31 by Interface Page 1 of 9 pMD [facility] EMERGENCY RECORD Patient Dose: 1-2 tab(s) Oral every 8 hours PRN.for pain. Zofran (as hydrochloride): TABLET : Strength - 4 mg : ORAL Patient Dose: 4 mg Oral every 4 hours prn. VITAL SIGNS VITAL SIGNS: BP: 130/81, Pulse: 88, Resp: 18, Temp: 97.6 (Oral), Pain: 0, O2 sat: 96 on Room Air, Time: 09/23/2016 23:23. (23:23 CHOB) BP: 129/91, Pulse: 90 (Regular), Resp: 18 (Non-Labored), Pain: 0, O2 sat: 94 on Room Air, Time: 09/23/2016 23:30. (23:30 CHOB) BP: 136/82, Pulse: 84, Resp: 20, Pain: 5, O2 sat: 95 on Room Air, Time: 09/24/2016 00:01. (SatSep 24, 2016 00:01 LSMI) BP: 118/87, Pulse: 84, Resp: 20, Temp: 97.8 (Oral), Pain: 2, O2 sat: 96 on Room Air, Time: 09/24/2016 01:00. (SatSep 24, 2016 01:00 LSMI) BP: 117/87, Pulse: 80, Resp: 16, Temp: 98.0 (Oral), Pain: 2, O2 sat: 97 on Room Air, Time: 09/24/2016 02:15. (SatSep 24, 2016 02:15 LSMI) NURSING ASSESSMENT: FOCUSED (23:35 CHOB) CONSTITUTIONAL: Complex assessment performed, Patient arrives ambulatory, Gait steady, History obtained from patient, Patient appears comfortable, Patient cooperative, Patient alert, Oriented to person, place and time, Skin warm, Skin dry, Skin normal in color, Mucous membranes pink, Mucous membranes moist, Patient is well-groomed, Patient complains of HYPERGLYCEMIA. EYES: Focused eye assessment finding include pupils equally round and reactive to light, Left pupil 3 mm in size, Right pupil 3 mm in size. NEURO: Focused neuro assessment findings include patient alert, cooperative, No facial droop noted, Speech coherent, no weakness, no numbness, No loss of consciousness. GCS: Eye opening: (4) - Spontaneous, Verbal: (5) - Oriented/conversive, Motor: (6) - Obeys commands/Spontaneous, GCS Total: 15. RESPIRATORY: Focused respiratory assessment findings include breath sounds clear, to bilateral upper lobes, to bilateral lower lobes. ABDOMEN: Focused abdominal assessment findings include abdomen soft, Vomiting, Number of times: 1, Description: FOOD, WHILE IN EMS, Bowel sounds present. GENITOURINARY: Notes: DENIES ANY C/C AT THIS TIME. MUSCULOSKELETAL: Focused musculoskeletal assessment findings include normal range of motion. SAFETY: Side rails up, Cart/Stretcher in lowest position, Family at bedside, Call light within reach, Hospital ID band on. NURSING PROCEDURE: BEDSIDE TESTING PATIENT IDENTIFIER: Patient actively involved in identification process, Patient's identity verified by patient stating name, Patient's identity verified by patient stating date, Patient's identity verified by hospital ID bracelet, Patient's identity &a-1R&a+25V*p+0X*w1601F*c202B*c15G*c2P*p-0X&a-25V&a+1R Name: Hans Dao : 1985 M31 MedRec: [id number] AcctNum: [id number] Prepared: SatSep 24, 2016 02:31 by Interface Page 2 of 9 D [facility] EMERGENCY RECORD verified by family member. (23:30 LSMI) Patient actively involved in identification process, Patient's identity verified by patient stating name, Patient's identity verified by patient stating date, Patient's identity verified by hospital ID jovi, Patient's identity verified by family member. (SatSep 24, 2016 00:24 LSMI) Patient actively involved in identification process, Patient's identity verified by patient stating name, Patient's identity verified by patient stating date, Patient's identity verified by hospital ID jovi, Patient's identity verified by family member. (SatSep 24, 2016 01:34 LSMI) GLUCOSE: Glucose testing indicated for hyperglycemia, Capillary blood sample, Result (mg/dl) 429. (23:30 LSMI) Glucose testing indicated for hyperglycemia, Capillary blood sample, Result (mg/dl) 366. (SatSep 24, 2016 00:24 LSMI) Glucose testing indicated for hyperglycemia, Capillary blood sample, Result (mg/dl) 360. (SatSep 24, 2016 01:34 LSMI) FOLLOW-UP: After procedure, results given to Dr. PATTERSON. (SatSep 24, 2016 01:34 LSMI) NURSING PROCEDURE: DISCHARGE NOTE (SatSep 24, 2016 02:20 LSMI) DISCHARGE: Patient discharged to home, ambulating without assistance, family driving, accompanied by other family member, Summary of Care printed/ provided, Transition record given to patient, Discharge instructions given to patient, Prescriptions given and instructions on side effects given, Name of prescription(s) given: METFORMIN 500MGPO, Above person(s) verbalized understanding of discharge instructions and follow-up care. NURSING PROCEDURE: IV PATIENT IDENITIFIER: Patient actively involved in identification process, Patient's identity verified by patient stating name, Patient's identity verified by patient stating date. (23:35 CHOB) Patient actively involved in identification process, Patient's identity verified by patient stating name, Patient's identity verified by patient stating date, Patient's identity verified by hospital ID bracelet. (SatSep 24, 2016 02:20 LSMI) IV SITE 1: IV therapy indicated for hydration, IV therapy indicated for medication administration, IV established, to the right antecubital, using an 18 gauge catheter, Saline lock established, Notes: PLACED BY EMS DIFFUSION OPERATOR. (23:35 CHOB) FOLLOW-UP SITE 1: After procedure, sterile transparent dressing applied, After procedure, IV line connections checked and properly labeled. (23:35 CHOB) IV discontinued, due to patient being discharged, catheter intact, After removal, sterile dressing applied to IV site. (SatSep 24, 2016 02:20 LSMI) SAFETY: Side rails up, Cart/Stretcher in lowest position, Family at bedside, Call light within reach, Hospital ID band on. (23:35 &a-1R&a+25V*p+0X*j5749B*c202B*c15G*c2P*p-0X&a-25V&a+1R Name: Will Daoheydi Yenni : 1985 M31 MedRec: [id number] AcctNum: [id number] Prepared: SatSep 24, 2016 02:31 by Interface Page 3 of 9 pMD [facility] EMERGENCY RECORD CHOB) NURSING PROCEDURE: URINE COLLECTION (23:30 CHOB) PATIENT IDENTIFIER: Patient actively involved in identification process, Patient's identity verified by patient stating name, Patient's identity verified by patient stating date. URINE COLLECTION MALE: Urine collection indicated for HYPERGLYCEMIA, Urine collected by mid-stream clean catch, Notes: COLLECTED AND SENT TO LAB BY BRANDON GARCIA. SAFETY: Side rails up, Cart/Stretcher in lowest position, Family at bedside, Call light within reach, Hospital ID band on. ORDER DETAILS Order Name: CBC with Differential, Status: Active, Time: 23:32 09/23/2016, User: AUGIE, - Ordered for: DO Patterson William, - Entered by: DO Patterson William - Sun Sep 23, 2016 23:32, - Quantity: 1, Order Name: Comprehensive Metabolic Panel, Status: Active, Time: 23:32 09/23/2016, User: coUrbanize, - Ordered for: DO Patterson William, - Entered by: DO Patterson William - Nancy Sep 23, 2016 23:32, - Quantity: 1, Order Name: Urinalysis with Microscopic, Status: Active, Time: 23:32 09/23/2016, User: coUrbanize, - Ordered for: DO Patterson William, - Entered by: DO Patterson William - Nancy Sep 23, 2016 23:32, - Quantity: 1. MEDICATION ADMINISTRATION SUMMARY Drug Name: metFORMIN, Dose Ordered: 500 mg, Route: Oral, Status: Given, Time: 02:14 09/24/2016, Drug Name: *sodium chloride 0.9 % intravenous, Dose Ordered: 1 L, Route: IV Fluid Infusion, Status: Given, Time: 00:29 09/24/2016, Drug Name: Toradol injection, Dose Ordered: 30 mg, Route: IV Push, Status: Given, Time: 00:01 09/24/2016, Drug Name: Zofran intravenous, Dose Ordered: 4 mg, Route: IV Push, Status: Given, Time: 00:01 09/24/2016, Drug Name: HumuLIN R, Dose Ordered: 5 units, Route: Subcutaneous, Status: Given, Time: 23:39 09/23/2016, *Additional information available in notes, Detailed record available in Medication Service section. MEDICATION SERVICE HumuLIN R: Order: HumuLIN R (insulin regular, human) - Dose: 5 units : Subcutaneous Schedule: Now Ordered by: Óscar Patterson DO &see-1R&a+25V*p+0X*c8627L*c202B*c15G*c2P*p-0X&a-25V&a+1R Name: Hans Dao : 1985 M31 MedRec: [id number] AcctNum: [id number] Prepared: SatSep 24, 2016 02:31 by Interface Page 4 of 9 pMD [facility] EMERGENCY RECORD Entered by: DO Nancy Mcgee Sep 23, 2016 23:33 Documented as given by: BRANDON Monique Sep 23, 2016 23:39 Patient, Medication, Dose, Route and Time verified prior to administration. Medication administered to right upper arm, Advised not to ambulate without assistance, Patient in position of comfort, Side rails up, Cart in lowest position, Family at bedside, Call light in reach, Co-signed by: Melissa Barcenas RN Barron Sep 23, 2016 23:49, Co-signed by: Melissa Barcenas RN Barron Sep 23, 2016 23:49. : Follow Up : Response assessment performed, No signs or symptoms of allergic reaction noted, Decreased symptoms, BLOOD SUGAR 366. (SatSep 24, 2016 00:14 LSMI) metFORMIN: Order: metFORMIN (metformin HCl) - Dose: 500 mg : Oral Schedule: Now Ordered by: Óscar Patterson DO Entered by: Óscar Patterson DO SatSep 24, 2016 01:40 , Acknowledged by: Griselda Davies LVN SatSep 24, 2016 01:52 Documented as given by: Griselda Davies LVN SatSep 24, 2016 02:14 Patient, Medication, Dose, Route and Time verified prior to administration. Site: Medication administered P.O., Correct patient, time, route, dose and medication confirmed prior to administration, Patient advised of actions and side-effects prior to administration, Allergies confirmed and medications reviewed prior to administration, Patient in position of comfort, Side rails up, Cart in lowest position, Family at bedside, Call light in reach. : Follow Up : Response assessment performed, No signs or symptoms of allergic reaction noted. (SatSep 24, 2016 02:00 LSMI) sodium chloride 0.9 % intravenous: Order: sodium chloride 0.9 % intravenous (0.9 % sodium chloride) - Dose: 1 L : IV Fluid Infusion Notes: (Bolus) Ordered by: Óscar Patterson DO Entered by: Óscar Patterson DO SatSep 24, 2016 00:21 , Acknowledged by: Griselda Davies LVN SatSep 24, 2016 00:25 Documented as given by: Griselda Davies LVN SatSep 24, 2016 00:29 Patient, Medication, Dose, Route and Time verified prior to administration. IV SITE #1 IV fluids established for hydration, IV SITE #1 into right antecubital, IV SITE #1 2nd bag hung, IV SITE #1 bolus of 1000 ml established, via primary tubing, IV SITE #1 on IV pump, Catheter placement confirmed via flush prior to administration, IV site without signs or symptoms of infiltration during medication administration, No swelling during administration, No drainage during administration, IV flushed after administration, Correct patient, time, route, dose and medication confirmed prior to administration, Patient advised of actions and side-effects prior to administration, Allergies confirmed and medications reviewed prior to administration, Patient in position of comfort, Side rails up, Cart in lowest &a-1R&a+25V*p+0X*y7850H*c202B*c15G*c2P*p-0X&a-25V&a+1R Name: Hans Dao : 1985 M31 MedRec: [id number] AcctNum: [id number] Prepared: SatSep 24, 2016 02:31 by Interface Page 5 of 9 pMD [facility] EMERGENCY RECORD position, Family at bedside, Call light in reach. : Follow Up : Response assessment performed, No signs or symptoms of allergic reaction noted, _IV SITE #1:_, IV fluid infusion discontinued, on SatSep 24, 2016 01:30, Total fluid hydration time IV site 1 1 hour, 5 minutes, ., Total amount infused: 1000, IV Line flushed after administration. (SatSep 24, 2016 01:30 LSMI) Toradol injection: Order: Toradol injection (ketorolac tromethamine) - Dose: 30 mg : IV Push POTENTIAL CONTRAINDICATED INTERACTION: diclofenac oral - Reviewed with patient, took last dose this am Schedule: Now Ordered by: Óscar Patterson DO Entered by: DO Nancy Mcgee Sep 23, 2016 23:52 , Acknowledged by: BRANDON Monique Sep 23, 2016 23:53 Documented as given by: Griselda Davies LVN [facility] Sep 24, 2016 00:01 Patient, Medication, Dose, Route and Time verified prior to administration. IV SITE #1 IVP, subsequent different medication, Slowly, Catheter placement confirmed via flush prior to administration, IV site without signs or symptoms of infiltration during medication administration, No swelling during administration, No drainage during administration, IV flushed after administration, Correct patient, time, route, dose and medication confirmed prior to administration, Patient advised of actions and side-effects prior to administration, Allergies confirmed and medications reviewed prior to administration, Patient in position of comfort, Side rails up, Cart in lowest position, Family at bedside, Call light in reach. : Follow Up : Response assessment performed, No signs or symptoms of allergic reaction noted, Decreased pain, Decreased symptoms, _IV SITE #1:_. (SatSep 24, 2016 00:35 LSMI) Zofran intravenous: Order: Zofran intravenous (ondansetron HCl) - Dose: 4 mg : IV Push Schedule: Now Ordered by: Óscar Patterson DO Entered by: DO Nancy Mcgee Sep 23, 2016 23:45 , Acknowledged by: Melissa Barcenas RN Barron Sep 23, 2016 23:49 Documented as given by: Griselda Davies LVN [facility] Sep 24, 2016 00:01 Patient, Medication, Dose, Route and Time verified prior to administration. IV SITE #1 IVP, initial medication, Slowly, Catheter placement confirmed via flush prior to administration, IV site without signs or symptoms of infiltration during medication administration, No swelling during administration, No drainage during administration, IV flushed after administration, Correct patient, time, route, dose and medication confirmed prior to administration, Patient advised of actions and side-effects prior to administration, Allergies confirmed and medications reviewed prior to administration, Patient in position of comfort, Side rails up, Cart in lowest position, Family at bedside, Call light in reach. &a-1R&a+25V*p+0X*r0769M*c202B*c15G*c2P*p-0X&a-25V&a+1R Name: Hans Dao : 1985 M31 MedRec: [id number] AcctNum: [id number] Prepared: SatSep 24, 2016 02:31 by Interface Page 6 of 9 pMD [facility] EMERGENCY RECORD : Follow Up : Response assessment performed, No signs or symptoms of allergic reaction noted, Decreased symptoms, Decreased vomiting, Decreased nausea, _IV SITE #1:_. (SatSep 24, 2016 00:36 LSMI) HPI DIABETES (23:43 WMEI) CHIEF COMPLAINT: Patient presents for evaluation of hyperglycemia, Pre-hospital or triage blood sugar greater than 400, Denies mental status change. HISTORIAN: History provided by patient, Additional history obtained from EMS, pt recently diagnosed dm has not started trt yet. LOCATION: No localizing symptoms. TIME COURSE: Gradual onset of symptoms, 1, days priror to arrival, Symptoms are improving. ASSOCIATED WITH: No associated history of chest pain, Associated with polyuria, Associated with vomiting. EXACERBATED BY: Patient's condition exacerbated by nothing. RELIEVED BY: Patient's condition relieved by nothing. ROS (23:45 WMEI) CONSTITUTIONAL: Historian reports chills, denies fever, reports weight loss. EYES: Historian denies eye pain, denies eye redness. ENT: Historian denies rhinorrhea, denies sore throat. CARDIOVASCULAR: Historian denies chest pain, no radiation. GI: Historian denies abdominal pain, reports nausea, reports vomiting. MUSCULOSKELETAL: Historian denies joint redness, denies joint stiffness. SKIN: Historian denies skin changes, denies skin lesions. NEUROLOGIC: Historian denies confusion, denies dizziness, denies focal weakness, denies lethargy. ENDOCRINE: Historian reports polyuria. PSYCHIATRIC: Historian denies anxiety, denies depression, denies drug abuse. PAST MEDICAL HISTORY (23:34 CHOB) MEDICAL HISTORY: Flu vaccine not up to date, Tetanus not up to date, Pneumococcal vaccine not up to date, Past medical history includes history of diabetes, Past medical history includes history of hypertension. Patient denies past medical history. Verified on 09/23/16. MALE SURGICAL HISTORY: Patient has no surgical history. Verified on 09/23/16. PSYCHIATRIC HISTORY: no history of suicidal ideations, No history of suicide attempts, No history of hallucinations, No history of homicidal ideations, No history of violence towards others, Psychiatric history includes, anxiety, depression. Patient denies psychiatric history. Verified on 09/23/16. SOCIAL HISTORY: Patient denies alcohol use, Patient denies &a-1R&a+25V*p+0X*r0599T*c202B*c15G*c2P*p-0X&a-25V&a+1R Name: Hans Dao : 1985 M31 MedRec: [id number] AcctNum: [id number] Prepared: SatSep 24, 2016 02:31 by Interface Page 7 of 9 D [facility] EMERGENCY RECORD drug use, Patient has no smoking history. Verified on 09/23/16. FAMILY HISTORY: Family History is not significant. PHYSICAL EXAM (23:47 WMEI) CONSTITUTIONAL: Vital Signs Reviewed. HEAD: Head exam included findings of head atraumatic, normocephalic. EYES: Conjunctiva normal, Sclera normal. ENT: Ear exam normal, Nose exam normal, Pharynx exam normal. NECK: Neck exam included findings of normal range of motion, Trachea midline. RESPIRATORY CHEST: Breath sounds clear, Chest exam included findings of chest movement symmetrical. CARDIOVASCULAR: Cardiovascular exam included findings of heart rate regular rate and rhythm, Heart sounds normal. ABDOMEN MALE: Abdominal exam included findings of abdomen nontender, Bowel sounds normal, no distension. UPPER EXTREMITY: Upper extremity exam included findings of inspection normal, Range of motion normal, Motor strength normal. LOWER EXTREMITY: Lower extremity exam included findings of inspection normal, Range of motion normal, Motor strength normal. NEURO: Placido coma scale 15, Neuro exam findings include patient oriented to person, place and time, Speech normal, Gait normal. SKIN: Skin exam included findings of skin warm, dry, and normal in color. LYMPHATIC: Lymphatic exam normal. PSYCHIATRIC: Psychiatric exam included findings of patient oriented to person place and time, Normal affect, Judgment normal, Insight normal. EVENTS TRANSFER: Triage to Emergency Emergency Room -02. (SatSep 23, 2016 23:26 CHOB) Removed from Emergency Emergency Room -02. (SatSep 24, 2016 02:24 CHOB) PROBLEM LIST No recorded problems DIAGNOSIS (SatSep 24, 2016 01:41 WMEI) FINAL: PRIMARY: Hyperglycemic coma - NIDDM, Type 2, ADDITIONAL: DEHYDRATION. DISPOSITION PATIENT: Disposition Type: Discharge, Disposition: *Discharge Home. (SatSep 24, 2016 01:41 WMEI) Patient left the department. (SatSep 24, 2016 02:24 CHOB) INSTRUCTION (SatSep 24, 2016 01:42 WMEI) DISCHARGE: DIABETES, GENERAL INFO, DIABETES HYPOGLYCEMIA ORAL AGENT. &a-1R&a+25V*p+0X*i2498R*c202B*c15G*c2P*p-0X&a-25V&a+1R Name: Hans Dao : 1985 2 MedRec: [id number] AcctNum: [id number] Prepared: SatSep 24, 2016 02:31 by Interface Page 8 of 9 pMD [facility] EMERGENCY RECORD SPECIAL: Follow-up with your PCP. PRESCRIPTION (SatSep 24, 2016 01:43 WMEI) metFORMIN: TABLET : 500 mg : ORAL : Quantity: 500 Unit: mg Route: ORAL Schedule: once a day (in the morning) Dispense: 30 Unit: tab(s) May substitute. Refills: No Refills . NOTES: No refills. IMAGING (SatSep 24, 2016 02:21 LSMI) *DISCHARGE INSTRUCTIONS RECEIPT: Image captured from scanner. *SUPPLY CHARGE SHEET: Image captured from scanner. Arthur: CHOB=STAS Barcenas, Melissa LSMI=BRANDON Davies Leah WMEI=DO Patterson William &a-1R&a+25V*p+0X*r1027I*c202B*c15G*c2P*p-0X&a-25V&a+1R Name: Hans Dao : 1985 M31 MedRec: [id number] AcctNum: [id number] Prepared: SatSep 24, 2016 02:31 by Interface Page 9 of 9 pMD MTDD
== END 2016-09-24 02:20 | disposition home or self-care (01) ==
LOC: BURERS 23:08
DX: E11.65 Type 2 diabetes mellitus with hyperglycemia (principal); E86.0 Dehydration; I10 Essential (primary) hypertension; F41.9 Anxiety disorder, unspecified; F32.9 Major depressive disorder, single episode, unspecified
CPT/HCPCS: 36415; 36416; 80053; 81001; 85025; 96361; 96372; 96374; 96375; J1815; J1885; J2405

== ENCOUNTER 2017-01-08 20:08 | Emergency (ER) | payer SELFPAY ==
[2017-01-08] MEDS ORDERED: Acetaminophen/Codeine 30-300mg Tablet ONE (20:40)
== END 2017-01-08 20:47 | disposition home or self-care (01) ==
LOC: BURERS 20:08
DX: M54.5 Low back pain (principal); E11.9 Type 2 diabetes mellitus without complications; I10 Essential (primary) hypertension; Z79.84 Long term (current) use of oral hypoglycemic drugs; Z79.899 Other long term (current) drug therapy
CPT/HCPCS: 99283

== ENCOUNTER 2017-01-15 06:29 | Emergency (ER) | payer SELFPAY ==
[2017-01-15] MEDS ORDERED: Nitroglycerin 0.4 MG TAB (25 Tab Bottle) ONE ×2 (06:47→06:56)
[2017-01-15 06:54] LABS: #Basophils 0.1 thou/uL (0.0-0.2); #Eosinphils 0.1 thou/uL (0.0-0.7); #Monocytes 0.4 thou/uL (0.11-0.59); #Neutrophils 3.7 thou/uL (1.40-6.50); %Basophils 0.8 % (0.0-1.0); %Eosinophils 1.6 % (0.0-10.0); %Lymphocytes 41.2 % (21.0-51.0); %Monocytes 4.9 % (0.0-10.0); %Neutrophils 51.5 % (42.0-75.0); Hemoglobin 13.6 g/dL (14.0-18.0); Mean Corpuscular HGB CONC 31.3 g/dL (32.0-36.0); Mean Corpuscular Volume 82.9 fl (80.0-94.0); Mean Platelet Volume 8.1 fL (7.4-10.4); Platelet Count 273 thou/uL (130-400); RBC Distribution Width 14.8 % (11.5-14.5); Red Blood Cell (RBC) Count 5.24 mill/uL (4.70-6.10); White Blood Cell (WBC) Count 7.2 thou/uL (4.8-10.8)
[2017-01-15 06:57] LABS: PTT 28.1 SEC (22.9-36.1); Prothrombin Time 13.5 SEC (12.0-14.7)
[2017-01-15 07:01] LABS: D-Dimer Test Less than 0.27 *mcg/mL (0.27-0.43)
[2017-01-15 07:07] LABS: ALT (SGPT) 34 U/L (0-55); AST (SGOT) 25 U/L (5-34); Alkaline Phosphatase 53 U/L (40-150); Anion Gap 14 mmol/L (10-20); BUN (Urea Nitrogen) 16 mg/dL (8.9-20.6); Bilirubin, Total 0.6 mg/dL (0.2-1.2); CK (CPK) 320 U/L (30-200); Calc. Creatinine Clearance 0 mL/min (70-130); Calcium 9.2 mg/dL (7.8-10.44); Carbon Dioxide 26 mmol/L (22-29); Chloride 98 mmol/L (98-107); Estimated GFR-MDRD Greater than 90; Globulin 3.8 g/dL (2.4-3.5); Glucose 181 mg/dL (70-105); Lipase 25 U/L (8-78); Protein, Total 7.8 g/dL (6.0-8.3); Sodium 134 mmol/L (136-145)
[2017-01-15 07:08] LABS: CKMB 1.5 ng/mL (0-6.6); Troponin I Less than 0.010 ng/mL (< 0.028)
[2017-01-15] MEDS ORDERED: Nitroglycerin 2% Ointment 1 INCH/1 GM Packet ONE (07:32)
--- NOTE | 2017-01-15 09:32 | RAD ---
PORTABLE CHEST: Date: 01/15/17 An AP portable film at 0643 hours is compared with a 04/03/15 study done at [facility]. FINDINGS: The heart is normal in size and the lungs are clear. No infiltrate or effusion seen. There is no con gestive change. The mediastinum is unremarkable and the trachea is midline. IMPRESSION: No acute findings. POS: HOME
== END 2017-01-15 07:50 | disposition left against medical advice (07) ==
LOC: BURERS 06:29
DX: R07.9 Chest pain, unspecified (principal); E11.9 Type 2 diabetes mellitus without complications; I10 Essential (primary) hypertension; F32.9 Major depressive disorder, single episode, unspecified; F41.9 Anxiety disorder, unspecified; Z79.84 Long term (current) use of oral hypoglycemic drugs; Z79.4 Long term (current) use of insulin; Z79.899 Other long term (current) drug therapy
CPT/HCPCS: 71010; 80053; 82553; 83690; 83880; 84484; 85025; 85379; 85610; 85730; 93005; 94760